=== PATIENT | male | born 1975 | race Caucasian/White ===

== ENCOUNTER 2016-12-26 08:16 | Emergency (ER) | payer BC, MEDICAID ==
[~2016-12-26] VITALS: Ht 185.4 cm; Wt 110.0 kg
[2016-12-26 08:26] VITALS: BP 166/94; PULSE 110; PULSE 92; RESP 20; TEMP 98.5; O2SAT 97
[2016-12-26] MEDS ORDERED: LEXA20TA PO (08:30)
[2016-12-26] MEDS ORDERED: NAPR500 PO (08:30)
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
== END 2016-12-26 09:10 | disposition home or self-care (01) ==
LOC: NEPC 08:16
DX: Z02.89 Encounter for other administrative examinations (principal); Y04.0XXA Assault by unarmed brawl or fight, initial encounter
CPT/HCPCS: 99282